=== PATIENT | male | born 1980 | race Hispanic/Latino ===

== ENCOUNTER 2016-08-29 10:38 | Emergency (ER) | payer OTHER ==
[2016-08-29 10:49] VITALS: BP 114/78; PULSE 85; RESP 16; TEMP 97.5; O2SAT 99
[2016-08-29 11:33] LABS: RBC URINE < 1 /hpf (0-3); URINE BILIRUBIN NEGATIVE (NEGATIVE); URINE BLOOD NEGATIVE (NEGATIVE); URINE COLOR Straw (YELLOW); URINE GLUCOSE (UA) NORMAL (Normal); URINE KETONE NEGATIVE (NEGATIVE); URINE LEUKOCYTE ESTERASE NEG Leu/uL (Negative); URINE PROTEIN NEGATIVE (NEGATIVE); URINE UROBILINOGEN NORMAL mg/dL (0.2-1.0); WBC URINE 4 /hpf (0-5)
[2016-08-29] MEDS ORDERED: cefTRIAXone IV 1 gm in Dextros 50 ML IV ONE (11:50)
--- NOTE | 2016-08-29 12:06 | C.PDOC ---
History Of Present Illness 35 yr old male presents to the ER for evaluation of penile itching for the past 1 1/2 weeks and discharge for the past 2 days. Patient reports of a unprotected , sexual encounter (oral sex) 2 weeks ago. He denies fever/chills, nausea/ vomiting, abdominal pain, diarrhea, testicular swelling, dysuria/hematuria. Time Seen by Provider: 08/29/16 11:14 Chief Complaint (Nursing): Male Genitourinary History Per: Patient History/Exam Limitations: no limitations Onset/Duration Of Symptoms: Days Severity: Mild Past Medical History Reviewed: Historical Data, Nursing Documentation, Vital Signs Vital Signs: Last Vital Signs Temp 97.5 F L 08/29/16 10:48 Pulse 85 08/29/16 10:48 Resp 16 08/29/16 10:48 BP 114/78 08/29/16 10:48 Pulse Ox 99 08/29/16 12:16 - Medical History PMH: No Chronic Diseases Family History: States: No Known Family Hx - Social History Hx Tobacco Use: Yes Hx Alcohol Use: Yes Hx Substance Use: No - Immunization History Hx Tetanus Toxoid Vaccination: No Hx Influenza Vaccination: No Hx Pneumococcal Vaccination: No Review Of Systems Except As Marked, All Systems Reviewed And Found Negative. Constitutional: Negative for: Fever, Chills Gastrointestinal: Negative for: Nausea, Vomiting, Abdominal Pain, Diarrhea Genitourinary: Positive for: Penile Discharge, Other (Penile itch). Negative for: Dysuria, Hematuria, Rash Skin: Negative for: Lesions Physical Exam - Physical Exam Appears: Well, Non-toxic, No Acute Distress Skin: Normal Color, Warm, Dry, No Rash Head: Normacephalic Oral Mucosa: Moist Throat: Normal, No Erythema, No Exudate Neck: Normal, Normal ROM, Supple Cardiovascular: Rhythm Regular Respiratory: Normal Breath Sounds, No Rales, No Rhonchi, No Stridor, No Wheezing Gastrointestinal/Abdominal: Normal Exam, Bowel Sounds, Soft, No Tenderness Male Genital: No Testicular Tenderness, No Testicular Swelling, No Scrotal Swelling, Other (Mild erythema around urethral meatus. Mild amount white discharge. No penile lesions. ) Extremity: Normal ROM, No Swelling Neurological/Psych: Oriented x3, Normal Motor ED Course And Treatment O2 Sat by Pulse Oximetry: 99 (RA) Pulse Ox Interpretation: Normal Progress Note: UA, Ucx and GC urine ordered. Patient given IM rocephin and PO Azithromycin. Patient instructed to follow up with PMD/clinic in 1-2 days for further testing such as HIV/hepatitis/RPR, etc. He understands he should abstain from sex x 1 week, and have any sexual partner(s) tested/treated. Disposition Counseled Patient/Family Regarding: Studies Performed, Diagnosis, Need For Followup - Disposition Referrals: Ulices Wiseman DO [[facility]] - Disposition: HOME/ ROUTINE Disposition Time: 12:05 Condition: STABLE Additional Instructions: FOLLOW UP WITH YOUR DOCTOR/CLINIC IN 1-2 DAYS HAVE SEXUAL PARTNER(S) TESTED/TREATED NO SEX X 1 WEEK RETURN TO ER IF SYMPTOMS WORSEN Instructions: Nonspecific Urethritis in Men (ED) Print Language: ARABIC - Clinical Impression Clinical Impression: Urethritis - Scribe Statement The provider has reviewed the documentation as recorded by the Patricia Lock Provider Attestation: All medical record entries made by the Patricia were at my direction and personally dictated by me. I have reviewed the chart and agree that the record accurately reflects my personal performance of the history, physical exam, medical decision making, and the department course for this patient. I have also personally directed, reviewed, and agree with the discharge instructions and disposition.
[2016-08-29] MEDS ORDERED: cefTRIAXone (Rocephin) 250 mg Inj IM STA (12:15)
== END 2016-08-29 12:57 | disposition home or self-care (01) ==
LOC: C.ER 10:38
DX: N34.2 Other urethritis (principal)
CPT/HCPCS: 81001; 87086; 87491; 87591; 96372; 99284; J0696

== ENCOUNTER 2016-09-20 09:12 | Emergency (ER) | payer OTHER ==
[2016-09-20 09:26] VITALS: BP 107/70; PULSE 90; RESP 18; TEMP 98.1; O2SAT 99
--- NOTE | 2016-09-20 10:00 | C.PDOC ---
History Of Present Illness 35 y/o male presents to the ED with complains of sore throat (worse on right) and chills at night x1 week. Pain 6/10, worse with swallowing. Pt has been taking OTC medications with minimal relief. Pt did no take temperature at home. Denies headache, neck pain, SOB, nausea, vomiting or any other complaints. Time Seen by Provider: 09/20/16 09:34 Chief Complaint (Nursing): ENT Problem History Per: Patient History/Exam Limitations: no limitations Onset/Duration Of Symptoms: Days Current Symptoms Are (Timing): Still Present Location Of Pain: Throat Sick Contacts (Context): None Associated Symptoms: Chills, Sore Throat. denies: Nausea, Vomiting, Diarrhea Severity: Moderate Pain Scale Rating Of: 6 Recent travel outside of the [place]: No Past Medical History Reviewed: Historical Data, Nursing Documentation, Vital Signs Vital Signs: Last Vital Signs Temp 98.1 F 09/20/16 09:22 Pulse 90 09/20/16 09:22 Resp 18 09/20/16 10:17 BP 107/70 09/20/16 09:22 Pulse Ox 99 09/20/16 10:01 Family History: States: Unknown Family Hx - Social History Hx Tobacco Use: Yes Hx Alcohol Use: Yes Hx Substance Use: No - Immunization History Hx Tetanus Toxoid Vaccination: No Hx Influenza Vaccination: No Hx Pneumococcal Vaccination: No Review Of Systems Except As Marked, All Systems Reviewed And Found Negative. Constitutional: Positive for: Chills ENT: Positive for: Throat Pain Respiratory: Negative for: Cough, Shortness of Breath Gastrointestinal: Negative for: Nausea, Vomiting Musculoskeletal: Negative for: Neck Pain Neurological: Negative for: Headache Physical Exam - Physical Exam Appears: Non-toxic, No Acute Distress Skin: Warm, Dry Head: Atraumatic, Normacephalic Ear(s): Bilateral: Normal Nose: Normal Oral Mucosa: Moist Throat: Other (pharyngeal erythema with exudate on right) Neck: Normal ROM, Supple Lymphatic: No Adenopathy Chest: Symmetrical Cardiovascular: Rhythm Regular, No Murmur Respiratory: Normal Breath Sounds, No Rales, No Rhonchi, No Wheezing Extremity: Bilateral: Atraumatic Neurological/Psych: Oriented x3, Normal Speech ED Course And Treatment O2 Sat by Pulse Oximetry: 99 (on room air) Pulse Ox Interpretation: Normal Medical Decision Making Medical Decision Making: Pt with modified centor score of 4. Sent home with NSAIDs, penicillin, prednisone. Disposition Counseled Patient/Family Regarding: Diagnosis, Need For Followup, Rx Given - Disposition Disposition: HOME/ ROUTINE Disposition Time: 09:58 Condition: STABLE Prescriptions: Ibuprofen [Motrin] 600 mg PO TID #15 tab Penicillin VK [Pen-Vee K] 500 mg PO QID #40 tab Prednisone [Deltasone] 40 mg PO DAILY #6 tablet Forms: General Discharge Instructions, Air Visits Discharge (Latvian), Work Excuse Print Language: ESTONIAN - POA Present On Arrival: None - Clinical Impression Clinical Impression: Pharyngitis - Scribe Statement The provider has reviewed the documentation as recorded by the Patricia Jesus Provider Attestation: All medical record entries made by the Patricia were at my direction and personally dictated by me. I have reviewed the chart and agree that the record accurately reflects my personal performance of the history, physical exam, medical decision making, and the department course for this patient. I have also personally directed, reviewed, and agree with the discharge instructions and disposition.
== END 2016-09-20 10:18 | disposition home or self-care (01) ==
LOC: C.ER 09:12
DX: J02.9 Acute pharyngitis, unspecified (principal); Z72.0 Tobacco use

== ENCOUNTER 2017-08-10 13:23 | Emergency (ER) | payer OTHER ==
--- NOTE | 2017-08-10 13:51 | C.PDOC ---
History Of Present Illness 36 y/o male presents to ED with complaints of generalized abdominal pain for 5 days with associated chills and subjective fever. Patient reports pain is waxing and waning and is worse after eating. Patient states he has not been eating normally secondary to pain and states symptoms have not improved which prompted visit to ED. Patient states he is on Truvada prophylactic but stopped taking it 4 days ago secondary to the abdominal pain. Patient admits to loose bowel movement but denies actual diarrhea, nausea, vomiting or any other complaints at this time. Time Seen by Provider: 08/10/17 13:41 Chief Complaint (Nursing): Abdominal Pain History Per: Patient History/Exam Limitations: no limitations Onset/Duration Of Symptoms: Days, Waxing/Waning Current Symptoms Are (Timing): Still Present Location Of Pain/Discomfort: Diffuse Past Medical History Reviewed: Historical Data, Nursing Documentation, Vital Signs Vital Signs: Last Vital Signs Temp 97.6 F 08/10/17 13:26 Pulse 94 H 08/10/17 13:26 Resp 16 08/10/17 13:26 BP 99/64 L 08/10/17 13:26 Pulse Ox 98 08/10/17 14:03 - Medical History PMH: No Chronic Diseases Surgical History: No Surg Hx Family History: States: No Known Family Hx - Social History Hx Tobacco Use: Yes Hx Alcohol Use: Yes Hx Substance Use: No - Immunization History Hx Tetanus Toxoid Vaccination: Yes Hx Influenza Vaccination: Yes Hx Pneumococcal Vaccination: No Review Of Systems Constitutional: Positive for: Fever, Chills Gastrointestinal: Positive for: Abdominal Pain. Negative for: Nausea, Vomiting , Diarrhea Genitourinary: Negative for: Dysuria, Hematuria Skin: Negative for: Rash Physical Exam - Physical Exam Appears: Non-toxic, No Acute Distress, Other (Thin appearing) Skin: Warm, Dry, No Rash Head: Atraumatic, Normacephalic Eye(s): bilateral: Normal Inspection Oral Mucosa: Moist Neck: Normal ROM, Supple Cardiovascular: Rhythm Regular, No Murmur Respiratory: Normal Breath Sounds, No Rales, No Rhonchi, No Wheezing Gastrointestinal/Abdominal: Bowel Sounds, Tenderness (diffuse), Guarding, No Rebound Back: No CVA Tenderness Extremity: Normal ROM, Capillary Refill (<2 seconds) Neurological/Psych: Oriented x3, Normal Speech ED Course And Treatment - Laboratory Results Result Diagrams: 08/10/17 14:04 08/10/17 14:04 Lab Interpretation: No Acute Changes (WBC 4.7 with elevated monos on diff) O2 Sat by Pulse Oximetry: 98 (RA) Pulse Ox Interpretation: Normal - CT Scan/US CT abdomen and pelvis with contrast Other Rad Studies (CT/US): Read By Radiologist, Radiology Report Reviewed CT/US Interpretation: Accession No. : [id number]. Patient Name / ID : MALORIE MARTINEZ / [id number]. Exam Date : 08/10/2017 15:51:02 ( Approved ). Study Comment : Sex / Age : M / 36Y. Creator : Viviane Calabrese. Dictator : Saba Burch MD. Coke Drawer Hand : Agricultural Aircraft Pilot : Saba Burch MD. Approver2 : Report Date : 08/10/2017 16:18:22. My Comment : . PROCEDURE: CT Abdomen and Pelvis with contrast. HISTORY: Abdominal pain. COMPARISON: None. TECHNIQUE: CT scan of the abdomen and pelvis was performed without administration of intravenous contrast. Oral contrast was administered. Coronal and sagittal reformatted images were obtained. The patient refused intravenous administration of contrast. Radiation dose: Total exam DLP = 232.93 mGy-cm. This CT exam was performed using one or more of the following dose reduction techniques: Automated exposure control, adjustment of the mA and/ or kV according to patient size, and/or use of iterative reconstruction technique. FINDINGS: LOWER THORAX: The visualized lungs are clear. LIVER: The liver is normal in size. No gross lesion or ductal dilatation. GALLBLADDER AND BILE DUCTS: There are no calcified gallstones. PANCREAS: Normal in size. No calcifications or ductal dilatation. SPLEEN: Normal in size. ADRENALS: No discrete nodule. KIDNEYS AND URETERS: Both kidneys are normal in size. There is a 3 mm nonobstructing stone in the lower pole of the right kidney. There is mild fullness in the right collecting system. VASCULATURE: No aortic aneurysm. BOWEL: The small bowel loops are normal in caliber. The colon unremarkable. No bowel dilatation or obstruction. APPENDIX: Normal appendix. PERITONEUM: No free fluid. No free air. LYMPH NODES: No enlarged lymph nodes. BLADDER: Grossly normal in appearance. REPRODUCTIVE: Unremarkable. BONES: No acute fracture. Within normal limits for the patient's age. OTHER FINDINGS: None. IMPRESSION: 1. 3 mm nonobstructing stone in the lower pole of the right kidney. Mild fullness in the right collecting system. No obstructive uropathy. 2. No CT evidence for acute appendicitis Reevaluation Time: 16:51 Reassessment Condition: Improved (Patient remains in no acute distress. He is tolerating po fluids and appears comfortable) Disposition Counseled Patient/Family Regarding: Studies Performed, Diagnosis, Need For Followup, Rx Given - Disposition Referrals: [facility] [Outside] Disposition: HOME/ ROUTINE Disposition Time: 16:55 Condition: IMPROVED Prescriptions: Dicyclomine [Bentyl] 20 mg PO QID PRN #20 tab PRN Reason: Pain, Severe (8-10) Instructions: Viral Gastroenteritis, Adult (DC), [place] Diet Forms: [employer] (Sami) - Clinical Impression Clinical Impression: Diarrhea - Scribe Statement The provider has reviewed the documentation as recorded by the Jaquelineibel Mullen All medical record entries made by the Jaquelineibel were at my direction and personally dictated by me. I have reviewed the chart and agree that the record accurately reflects my personal performance of the history, physical exam, medical decision making, and the department course for this patient. I have also personally directed, reviewed, and agree with the discharge instructions and disposition.
[2017-08-10] MEDS ORDERED: Iohexol 240 (50 ml) PO STA (13:56)
[2017-08-10] MEDS ORDERED: Sodium Chloride 0.9% 1,000 ML IV ONE (13:56)
[2017-08-10] MEDS ORDERED: Sodium Chloride 0.9% 1,000 ML ONE (14:05)
[2017-08-10] MEDS ORDERED: Iohexol 240 (50 ml) ONE (14:05)
[2017-08-10 14:07] LABS: BASO % 0.5 % (0.0-2.0); EOS # 0.1 K/uL (0.0-0.7); EOS % 1.6 % (0.0-4.0); HEMOGLOBIN 15.5 g/dL (12.0-18.0); LYMPH # 1.2 K/uL (1.0-4.3); LYMPH % 25.6 % (20.0-40.0); MEAN CELL VOLUME 94.1 fL (80.0-94.0); MEAN CORPUSCULAR HEMOGLOBIN 32.3 pg (27.0-31.0); MEAN CORPUSCULAR HGB CONC 34.3 g/dL (33.0-37.0); MEAN PLATELET VOLUME 7.9 fL (7.2-11.7); MONO # 0.7 K/uL (0.0-0.8); MONO % 15.1 % (0.0-10.0); NEUT # 2.7 K/uL (1.8-7.0); NEUT % 57.2 % (50.0-75.0); NRBC % 0.1 % (0.0-2.0); RBC 4.81 Mil/uL (4.40-5.90); RED CELL DISTRIBUTION WIDTH 12.6 % (11.5-14.5); WHITE BLOOD COUNT 4.7 K/uL (4.8-10.8)
[2017-08-10 14:19] LABS: ALB/GLOB RATIO 1.1 (1.0-2.1); ALBUMIN 3.9 g/dL (3.5-5.0); ALT/SGPT 22 U/L (21-72); AST/SGOT 16 U/L (17-59); BLOOD UREA NITROGEN 12 mg/dL (9-20); CALCIUM 8.7 mg/dl (8.6-10.4); GFR AFRICAN-AMERICAN > 60; GFR NON-AFRICAN AMERICAN > 60; LIPASE 46 U/L (23-300)
[2017-08-10] MEDS ORDERED: Iodixanol 320 MG/ML 100 ML BOTTLE IV ONE (14:51)
[2017-08-10 16:25] LABS: URINE BILIRUBIN NEGATIVE (NEGATIVE); URINE BLOOD NEGATIVE (NEGATIVE); URINE CLARITY Clear (Clear); URINE COLOR Yellow (YELLOW); URINE GLUCOSE (UA) NORMAL (Normal); URINE LEUKOCYTE ESTERASE NEG Leu/uL (Negative); URINE PROTEIN NEGATIVE (NEGATIVE); URINE UROBILINOGEN NORMAL mg/dL (0.2-1.0)
--- NOTE | 2017-08-10 16:40 | CT ---
PROCEDURE: CT Abdomen and Pelvis with contrast HISTORY: Abdominal pain COMPARISON: None. TECHNIQUE: CT scan of the abdomen and pelvis was performed without administration of intravenous contrast. Oral contrast was administered. Coronal and sagittal reformatted images were obtained. The patient refused intravenous administration of contrast. Radiation dose: Total exam DLP = 232.93 mGy-cm. This CT exam was performed using one or more of the following dose reduction techniques: Automated exposure control, adjustment of the mA and/or kV according to patient size, and/or use of iterative reconstruction technique. FINDINGS: LOWER THORAX: The visualized lungs are clear. LIVER: The liver is normal in size. No gross lesion or ductal dilatation. GALLBLADDER AND BILE DUCTS: There are no calcified gallstones. PANCREAS: Normal in size. No calcifications or ductal dilatation. SPLEEN: Normal in size. ADRENALS: No discrete nodule. KIDNEYS AND URETERS: Both kidneys are normal in size. There is a 3 mm nonobstructing stone in the lower pole of the right kidney. There is mild fullness in the right collecting system. VASCULATURE: No aortic aneurysm. BOWEL: The small bowel loops are normal in caliber. The colon unremarkable. No bowel dilatation or obstruction. APPENDIX: Normal appendix. PERITONEUM: No free fluid. No free air. LYMPH NODES: No enlarged lymph nodes. BLADDER: Grossly normal in appearance. REPRODUCTIVE: Unremarkable. BONES: No acute fracture. Within normal limits for the patient's age. OTHER FINDINGS: None. IMPRESSION: 1. 3 mm nonobstructing stone in the lower pole of the right kidney. Mild fullness in the right collecting system. No obstructive uropathy. 2. No CT evidence for acute appendicitis.
[2017-08-10 17:03] VITALS: BP 97/60; PULSE 72; RESP 18; TEMP 97.7; O2SAT 99
== END 2017-08-10 17:04 | disposition home or self-care (01) ==
LOC: C.ER 13:23
DX: R19.7 Diarrhea, unspecified (principal)
CPT/HCPCS: 74176; 80053; 81001; 83690; 85025; 96360; 99284; J7040; Q9966; Q9967

== ENCOUNTER 2018-02-08 22:05 | Emergency (ER) | payer OTHER ==
[2018-02-08 22:19] VITALS: BP 109/72; PULSE 79; RESP 16; TEMP 98.5; O2SAT 98
--- NOTE | 2018-02-08 22:39 | C.PDOC ---
History Of Present Illness 37 yo male c/o bump to the left buttock x 1 month. Pt notes that it has recently becoming more painful to sit on it and has become larger. (+) admits to shaving the area. Denies fever, discharge, rectal pain or bleeding, abdominal pain, or trauma. Time Seen by Provider: 02/08/18 22:17 Chief Complaint (Nursing): Abnormal Skin Integrity History Per: Patient History/Exam Limitations: no limitations Onset/Duration Of Symptoms: Days Past Medical History Vital Signs: Last Vital Signs Temp 98.5 F 02/08/18 22:18 Pulse 79 02/08/18 22:18 Resp 16 02/08/18 22:18 BP 109/72 02/08/18 22:18 Pulse Ox 98 02/08/18 22:39 Family History: States: Unknown Family Hx - Social History Hx Tobacco Use: Yes Hx Alcohol Use: Yes Hx Substance Use: No - Immunization History Hx Tetanus Toxoid Vaccination: Yes Hx Influenza Vaccination: Yes Hx Pneumococcal Vaccination: No Review Of Systems Except As Marked, All Systems Reviewed And Found Negative. Physical Exam - Physical Exam Appears: Well, Non-toxic, No Acute Distress Skin: Warm, Dry, Other ((+) 4 cm area of erythema in the left gluteal fold with central induration, no fluctuance) Head: Atraumatic, Normacephalic Eye(s): bilateral: Normal Inspection, EOMI Nose: Normal Neck: Normal, Normal ROM, Supple Chest: Symmetrical Cardiovascular: Rhythm Regular Respiratory: Normal Breath Sounds, No Accessory Muscle Use Gastrointestinal/Abdominal: Normal Exam, Soft, No Tenderness Back: Normal Inspection, No CVA Tenderness, No Vertebral Tenderness Extremity: Normal ROM Neurological/Psych: Oriented x3, Normal Speech ED Course And Treatment O2 Sat by Pulse Oximetry: 98 Progress Note: PT denies having HIV, pt takes PEP for the last 1+ year for prophylaxis. Instructed warm compresses and return precautions. Disposition - Disposition Disposition: HOME/ ROUTINE Disposition Time: 22:38 Condition: STABLE Additional Instructions: Apply warm compresses. Return in 2-3 days for a wound check. Prescriptions: Clindamycin [Cleocin] 300 mg PO QID #28 cap Instructions: Boil (DC) Forms: [employer] (Eritrean) - Clinical Impression Clinical Impression: Cellulitis
== END 2018-02-08 23:02 | disposition home or self-care (01) ==
LOC: C.ER 22:05
DX: L03.317 Cellulitis of buttock (principal)